=== PATIENT | male | born 1995 ===

== ENCOUNTER 2019-02-01 11:28 | Outpatient (CLI) | payer OTHER ==
[~2019-02-01 11:28] MED LIST: LEVSIN/SL0.125 MG SL; PEPCID40 MG PO; ZANTAC150 M3
== END 2019-02-01 11:58 | disposition home or self-care (01) ==
LOC: LAB 11:28
DX: E78.49 Other hyperlipidemia (principal); Z00.00 Encounter for general adult medical examination without abnormal findings; R42 Dizziness and giddiness